=== PATIENT | female | born 1990 | race Caucasian/White ===

== ENCOUNTER → 2021-11-18 | Outpatient (CLI) | payer OTHER ==
[~2021-11-18] MED LIST: METAMUCIL660 GM PO
== END ==
LOC: LAB 09:35
DX: J02.9 Acute pharyngitis, unspecified (principal)

== ENCOUNTER → 2023-08-27 | Outpatient (REF) | payer OTHER | LOC: LAB 08:45 | DX: Z20.818 Contact with and (suspected) exposure to other bacterial communicable diseases (principal) ==